=== PATIENT | female | born 1945 | race Caucasian/White ===

== ENCOUNTER 2016-11-27 14:45 | Outpatient (CLI) | payer MEDICARE, BC, OTHER | END 2016-11-27 14:46 | disposition home or self-care (01) | LOC: SC 14:45 | PROVIDERS: ATTEND Nurse Practitioner Family | DX: G47.33 Obstructive sleep apnea (adult) (pediatric) (principal) | CPT/HCPCS: 99214; G0463; 99212 ==

== ENCOUNTER 2017-12-12 13:12 | Outpatient (CLI) | payer MEDICARE, BC, OTHER | END 2017-12-12 13:13 | disposition home or self-care (01) | LOC: SC 13:12 | PROVIDERS: ATTEND Nurse Practitioner Family | DX: G47.33 Obstructive sleep apnea (adult) (pediatric) (principal) | CPT/HCPCS: 99214; G0463; 99212 ==

== ENCOUNTER 2018-02-11 20:26 | Outpatient (CLI) | payer MEDICARE, BC, OTHER | END 2018-02-11 20:27 | disposition home or self-care (01) | LOC: SC 20:26 | PROVIDERS: ATTEND Internal Medicine Pulmonary Disease | DX: G47.33 Obstructive sleep apnea (adult) (pediatric) (principal) | CPT/HCPCS: 95810 ==

== ENCOUNTER 2018-02-19 09:46 | Outpatient (CLI) | payer MEDICARE, BC, OTHER | END 2018-02-19 09:47 | disposition home or self-care (01) | LOC: SC 09:46 | PROVIDERS: ATTEND Nurse Practitioner Family | DX: G47.33 Obstructive sleep apnea (adult) (pediatric) (principal) | CPT/HCPCS: 99214; G0463; 99212 ==

== ENCOUNTER 2018-05-13 15:20 | Outpatient (CLI) | payer MEDICARE, BC, OTHER | END 2018-05-13 15:21 | disposition home or self-care (01) | LOC: SC 15:20 | PROVIDERS: ATTEND Nurse Practitioner Family | DX: G47.33 Obstructive sleep apnea (adult) (pediatric) (principal) | CPT/HCPCS: 99213; G0463; 99212 ==

== ENCOUNTER 2019-05-15 10:49 | Outpatient (CLI) | payer MEDICARE, BC, OTHER ==
[2019-05-15 11:48] VITALS: BP 134/68
--- NOTE | 2019-05-15 11:48 | SLEEP CARE CONSULTATION ---
Information from patient questionnaire entered by Jaimie Barboza. I have reviewed and concur with the information entered by Jaimie Barboza. This document represents the service I personally performed and the decisions made by me, Amy Will, RN, MSN, [employer] HELPER. History of Present Illness Previous diagnosis: Severe, Obstructive Sleep Apnea-Hypopnea Syndrome AHI: 58.0 Reason for follow up: annual (last seen 2018) Accompanied by: Spouse Equipment type: CPAP Equipment obtained from: [place] Mask style: Nasal pillows Backup mask available: Yes Last cushion change: 3 weeks ago CPAP Compliance Data - Data Reviewed with Patient Average duration of nightly device use: 7.3 Compliance rate %: 98.9 (180 days) Current pressure setting (cmH2O): 8-9 Humidity settin Heated hose settin Average residual AHI: 2.6 Average large leak: 3 min 40 sec Subjective Patient concerns: reports: dry mouth, nose, throat (a couple times a week for dry nose ). denies: aerophagia, mask discomfort, air blowing in eyes, mask leak noise, condensation in mask/hose, nasal congestion, epistaxis Observed to snore while using device: Yes (occasional ) Current pressure setting perceived as: comfortable On therapy, patient: reports: sleeping better (when not having back pain), more rested overall (when sleep not disrupted by back pain - seen by PCP this morning. ) Initial [place] Sleepiness Scale score: 8 Current [place] Sleepiness Scale score: 7 Allergies and Home Medications Known drug allergies: No Home medication list reviewed: Yes (see added meds) Allergy and home medication list: Medication Name (generic/name brand) Strength & Dosage Micardis/HCTZ 80/25mg tab one daily Fluoxetine 20mg tab one daily eliquis 5mg twice a day Toprol XL 25mg daily Metformin daily Review of Systems Review of systems same as previous: No (echocardiogram -arrhythmia corrected with cardioversion ) Physical Exam Blood Pressure: 134/68 Cuff size: wrist Heart Rate: 77 O2 Saturation: 95 Height: 5 ft 6 in Weight: 249 lb 12.8 oz Weight change since last visit: lost 10 pounds Body Mass Index: 40.3 BMI Classification: Obesity Class 3 Impression and Plan 1. Obstructive Sleep Apnea-Hypopnea Syndrome, severe, with good treatment compliance and good apnea control. On CPAP therapy, the patient has better sleep quality and is more rested overall if sleep not disrupted by back pain. She recently was evaluated by PCP today and treatment plan started. Nasal dryness can be reduced with increasing the CPAP humidity as shown on sample device and the heated hose can be increased if condensation. Ptinted instructions on how to change pressure with rationale why to change settings given. In addition, I gave the patient a few samples of Nany Ease nasal cream to be used 4 times a day for 7-10 days and then as needed. Printed information given about the product and how to obtain more. Since she has a history of nasal dryness even before CPAP use, she may benefit from use of this product daily. I advised her not to use the vaseline, Vicks product she has been using before especially if before CPAP use as the petroleum base can increase mask cushion breakdown. Patient has lost lost weight. Currently patients BMI is 40.3 obesity class Obesity Class 3. Obesity increases the risk of apnea, CPAP pressure requirements and overall health risks especially cardiovascular and diabetes. Thus patient is advised to continue tp lose weight and informed of benefit to her diabetes. Patient states she has struggled with weight loss. She was advised how a good demand planning analyst can assist with weight loss. But patient did not seem interested. I also discussed how weight loss and gain can affect CPAP pressure. Symptoms to report for additional pressure adjustment discussed. Patient's apnea severity and rationale for treatment to reduce apnea, improve sleep quality and reduce cardiovascular and cerebrovascular events was reviewed. I also reviewed the benefit of consistent device use of CPAP for hypertension, arrhythmia, diabetes. * Continue CPAP pressure at 8-9 cmH2O * Implement measures to reduce nasal dryness * Notify me if snoring with mask or feeling that the pressure is too much or too little * Attempt to lose weight * Call this office if any problems using CPAP * Return for follow up in 1 year, or sooner if concerns arise Time Spent with Patient (minutes): 25 I spent 100% of this visit face to face with the patient with greater than 50% of this was spent time counseling the patient and coordination of care.
== END 2019-05-15 10:50 | disposition home or self-care (01) ==
LOC: SC 10:49
PROVIDERS: ATTEND Nurse Practitioner Family
DX: G47.33 Obstructive sleep apnea (adult) (pediatric) (principal); E66.9 Obesity, unspecified; Z68.41 Body mass index [BMI] 40.0-44.9, adult
CPT/HCPCS: 99214; G0463; 99212

== ENCOUNTER 2020-01-20 11:08 | Outpatient (CLI) | payer MEDICARE, BC, OTHER ==
--- NOTE | 2020-01-26 14:47 | Mammography Report ---
BILATERAL DIGITAL SCREENING MAMMOGRAM 3D/2D: 01/20/2020 CLINICAL: Routine screening. Comparison is made to exams dated: 08/16/2011 mammogram, 08/16/2010 mammogram, 08/23/2009 mammogram, and 08/05/2009 mammogram - [facility]. The tissue of both breasts is predominantly fat ty. There is an asymmetry in the left breast middle depth lateral region seen on the craniocaudal view on ly. No other significant masses, calcifications, or other findings are seen in either breast. IMPRESSION: INCOMPLETE: NEEDS ADDITIONAL IMAGING EVALUATION The asymmetry in the left breast is indeterminate. Additional views with possible ultrasound are rec ommended. This exam was interpreted at Station ID: [id number]. NOTE: For mammograms, a report in lay terms will be sent to the patient. Approximately 15% of breast malignancies will not be visualized mammographically. In the management of a palpable breast mass, a negative mammogram must not discourage biopsy of a clinically suspicious lesion. Electronically Signed By: Ena Shay M.D. lk/:01/26/2020 10:26:44 ACR BI-RADS Category 0: Incomplete 3340F PARENCHYMAL PATTERN: (F) - The breast(s) demonstrate(s) diffuse fatty replacement. BI-RADS CATEGORY: (0) - 0 Mammo and [place] [id number] Immediate follow-up LATERALITY: (B)
== END 2020-01-20 11:09 | disposition home or self-care (01) ==
LOC: DI.N 11:08
DX: Z12.31 Encounter for screening mammogram for malignant neoplasm of breast (principal); R92.8 Other abnormal and inconclusive findings on diagnostic imaging of breast
CPT/HCPCS: 77063; 77067

== ENCOUNTER 2020-02-19 09:54 | Outpatient (CLI) | payer MEDICARE, BC, OTHER ==
--- NOTE | 2020-02-20 16:15 | Mammography Report ---
UNILATERAL LEFT DIGITAL DIAGNOSTIC MAMMOGRAM 3D/2D: 02/19/2020 CLINICAL: Patient returns today to evaluate a focal asymmetry in the left breast. Comparison is made to exams dated: 01/20/2020 mammogram - [facility], 12/27/2018 mamm ogram, 12/13/2017 mammogram, and 11/13/2016 mammogram - [facility]. The tissue of left breast is predominantly fatty. There is a stable benign focal asymmetry in the left breast at 4 o'clock middle depth. The focal as ymmetry has not significantly changed when compared to more recent outside mammograms dating back to 11/13/2016, and is therefore considered benign. No other significant masses or calcifications are seen in the breast. IMPRESSION: BENIGN There is no mammographic evidence of malignancy. A 1 year screening mammogram is recommended. This exam was interpreted at Station ID: [id number]. NOTE: For mammograms, a report in lay terms will be sent to the patient. Approximately 15% of breast malignancies will not be visualized mammographically. In the management of a palpable breast mass, a negative mammogram must not discourage biopsy of a clinically suspicious lesion. Electronically Signed By: Artemio blue/janet:02/19/2020 12:37:19 ACR BI-RADS Category 2: Benign Finding(s) 3342F PARENCHYMAL PATTERN: (F) - The breast(s) demonstrate(s) diffuse fatty replacement. BI-RADS CATEGORY: (2) - 2 RECOMMENDATION: (ANNUAL) - Recommend routine annual screening mammography. [id number] 1 year screening LATERALITY: (B)
== END 2020-02-19 09:55 | disposition home or self-care (01) ==
LOC: DI 09:54
PROVIDERS: ATTEND Internal Medicine
DX: R92.8 Other abnormal and inconclusive findings on diagnostic imaging of breast (principal)

== ENCOUNTER 2020-05-13 12:33 | Outpatient (CLI) | payer MEDICARE, BC, OTHER ==
--- NOTE | 2020-05-13 11:05 | SLEEP CARE CONSULTATION ---
Information from patient questionnaire entered by Jaimie Barboza. I have reviewed and concur with the information entered by Jaimie Barboza. This document represents the service I personally performed and the decisions made by me, Amy Will, RN, MSN, IT DIRECTOR. History of Present Illness Service Date and Time: 05/13/2020 1030 Previous diagnosis: Severe, Obstructive Sleep Apnea-Hypopnea Syndrome AHI: 58.0 (in 2018)(58.6 in 2008) Reason for follow up: annual (last seen 04/2019) Equipment type: CPAP Equipment obtained from: [employer] (getting supplies as needed) Mask style: Nasal pillows Backup mask available: Yes (old mask ) Last cushion change: a few days ago Prior sleep studies: Yes Year and Where: 2007 and 2017 - [facility] Type of Sleep Study: Polysomnography CPAP Compliance Data - Data Reviewed with Patient Average duration of nightly device use: 7 hr 40 min Compliance rate %: 98.9 (180 days) Current pressure setting (cmH2O): 8-9 Humidity settin Heated hose settin Average residual AHI: 2.2 Average large leak: 4 min 20 sec Subjective Patient concerns: reports: mask discomfort (occasionally some discomfort - wonders if she is changing every two weeks as planned ), dry mouth, nose, throat (dry nose with burning sensation intermittently the last couple of months ), other (slight headache when wakes with dry stinging nose. ). denies: aerophagia, air blowing in eyes, mask leak noise, condensation in mask/hose (some moisture when first puts one and will off), nasal congestion, epistaxis Observed to snore while using device: No Current pressure setting perceived as: comfortable On therapy, patient: reports: sleeping better, awakening more refreshed, being more awake and alert during the day (more fatigued since pandemic), more rested overall. denies: drowsiness while driving Initial [place] Sleepiness Scale score: 8 (in 2007) Current [place] Sleepiness Scale score: 7 Allergies and Home Medications Known drug allergies: No Home medication list reviewed: Yes (added flecainide succinate) Review of Systems Review of systems same as previous: No (atrial fibrillation - cardioversion unsuccessful so medications changed ) Physical Exam Height: 5 ft 6 in (same per patient) Impression and Plan 1. Obstructive Sleep Apnea-Hypopnea Syndrome, severe, with good treatment compliance and good apnea control. On CPAP therapy, the patient has better sleep quality and is more rested overall. To decrease mask discomfort, patient to change mask cushions more often. To help remember when this is completed, she can track on a small calendar at bedside. To reduce moisture in mask after cleaning, she can turn on CPAP on to dry out. Cleaning questions answered. I referred her to the CPAP manual and [place] for further clarification. She had questions about instructional technology coordinator and FDA warning given not to use. Nasal dryness can be reduced with increasing the CPAP humidity. Verbal instruction given. The heated hose can be increased if condensation. If unable to change humidity higher as advised, she can contact [place]. A higher humidity should also reduce slight headache if from dryness. If headache persistent, she is to contact her PCP with rationale discussed. Nasal dryness can also be reduced with a nasal moisturizer such as Nany Ease or [place]. Questions can be addressed with pharmacist. Use of Vicks was discouraged with rationale discussed. Patient's apnea severity and rationale for treatment to reduce apnea, improve sleep quality and reduce cardiovascular and cerebrovascular events was reviewed. I also reviewed the benefit of consistent device use of CPAP for hypertension. Since patient has more severe apnea in supine position, patient advised to avoid supine sleep with pillow positioning if unable to use CPAP while ill or if without electricity to reduce apnea risk. When asked about her weight she stated it is the same and did not want to discuss. I just stated that weight can affect apnea risk and CPAP pressure and health and to follow up with PCP. 2. Fatigue, since pandemic. Wonders if due to inactivity since pandemic restrictions. I advised her how inactivity can increase fatigue and to move more during the day. She is to follow up with PCP if persists. * Continue auto CPAP pressure at 8-9 cmH2O * implement methods to reduce dryness. * Notify me if snoring with mask or feeling that the pressure is too much or too little * Attempt to lose weight * Follow up with PCP as discussed * Call this office if any problems using CPAP * Return for follow up in 1 year , or sooner if concerns arise Counseling Topics: Sleeping position Visit Type: Telehealth Phone ([employer]) Patient Location: Home Other Participants: Spouse/Significant Other Location of Provider: Home Patient agrees and consents to this telehealth visit type: Yes Patient agrees to have their insurance billed: Yes Time Spent with Patient (minutes): 30 plus 8 minutes documentation after visit. Provider Statement: I spent 100% of the Telehealth Phone Call with the patient with greater than 50% spent counseling the patient and coordination of care.
== END 2020-05-13 12:34 | disposition home or self-care (01) ==
LOC: SC 12:33
PROVIDERS: ATTEND Nurse Practitioner Family
DX: G47.33 Obstructive sleep apnea (adult) (pediatric) (principal); R53.83 Other fatigue

== ENCOUNTER 2020-09-29 12:58 | Outpatient (CLI) | payer MEDICARE, BC, OTHER | END 2020-09-29 12:59 | disposition home or self-care (01) | LOC: RT 12:58 | PROVIDERS: ATTEND Internal Medicine Cardiovascular Disease | DX: I35.0 Nonrheumatic aortic (valve) stenosis (principal); I48.0 Paroxysmal atrial fibrillation | CPT/HCPCS: 94010 ==

== ENCOUNTER 2021-05-03 11:14 | Outpatient (CLI) | payer MEDICARE, BC, OTHER ==
[2021-05-03 11:54] VITALS: BP 135/62
--- NOTE | 2021-05-03 11:54 | SLEEP CARE CONSULTATION ---
Information from patient questionnaire entered by Wen Sommer MA. I have reviewed and concur with the information entered by Wen Sommer MA. This document represents the service I personally performed and the decisions made by , Peidad Oconnor ARNP. History of Present Illness Service Date and Time: 05/03/2021 1114 Previous diagnosis: Severe, Obstructive Sleep Apnea-Hypopnea Syndrome AHI: 58.0 (in 2018)(58.6 in 2008) Reason for follow up: annual Equipment type: CPAP Equipment obtained from: [employer] (getting supplies as needed) Mask style: Nasal pillows Backup mask available: Yes (old mask) Last cushion change: last night Prior sleep studies: Yes Year and Where: 2007 and 2017 - [facility] Type of Sleep Study: Polysomnography HPI additional information: PAXTON GEE was diagnosed to have severe, AHI 58.0, obstructive sleep apnea- hypopnea syndrome and returned today with spouse for CPAP therapy annual follow- up. Sleep Study - Results Type of Sleep Study: Polysomnography Prior sleep studies: Yes Year and Where: 2007 and 2017 - [facility] CPAP Compliance Data - Data Reviewed with Patient Average duration of nightly device use: 7 HOURS 15 MINUTES Compliance rate %: 99.4 Current pressure setting (cmH2O): 8-9 Humidity settin Heated hose settin Average residual AHI: 2.8 Average large leak: 3 MINUTES 17 SECONDS Subjective Patient concerns: reports: dry mouth, nose, throat (dry mouth and nose), other (headache - not sure if CPAP is at fault; resolves with tylenol) Observed to snore while using device: No Current pressure setting perceived as: comfortable On therapy, patient: reports: sleeping better, awakening more refreshed, being more awake and alert during the day, more rested overall. denies: drowsiness while driving Initial [place] Sleepiness Scale score: 8 (in 2007) Current [place] Sleepiness Scale score: 10 Allergies and Home Medications Known drug allergies: No Drug allergies reviewed: Yes Home medication list reviewed: Yes Allergy and home medication list: Dofetilide for AFib--started in November Furosemide Telmasartin Toprol XL Eliquis Review of Systems Review of systems same as previous: Yes (no changes; appt with ortho for knee) Cardiovascular: reports: irregular heart rate or pulse, other (AFIB - PT NOW HAS IT CONTROLLED.) Physical Exam Vital signs obtained and entered by: GENA AVALOS Blood Pressure: 135/62 (RIGHT) Cuff size: wrist Heart Rate: 86 O2 Saturation: 96 (WITH PAPER MASK) Height: 5 ft 6 in Weight: 230 lb (WITH CLOTHES) Body Mass Index: 37.1 BMI Classification: Obese Impression and Plan 1. Obstructive Sleep Apnea-Hypopnea Syndrome, severe, with excellent treatment compliance and good apnea control. On CPAP therapy, the patient has better sleep quality and is more rested overall. Patient has been having some nasal dryness with occasional burning. Her machine is set at 5 for heated hose and humidifier. I advised to reduce heated hose to 4. Nasal dryness can be reduced with increasing the CPAP humidity as shown on sample device and the heated hose can be increased if condensation. In addition, I gave the patient a few samples of Nany Ease nasal cream to be used 4 times a day for 7-10 days and then as needed. Patient has already registered their device for the recall. Patient denies any black particles seen in machine or hoses, any unusual odors coming from device. Patient has not experienced any physical symptoms such as upper airway irritation, headache, skin or eye irritation, asthma, nausea/vomiting, difficulty breathing or chest pain. If patient is not able to sleep due to waking up choking, gasping for air or other respiratory distress that they may decide to continue using it until it is either replaced or repaired. Patient is continuing to use her device at this time and will monitor it for any changes. Patient voiced understanding and agreement with plan. Patient's apnea severity and rationale for treatment to reduce apnea, improve sleep quality and reduce cardiovascular and cerebrovascular events was reviewed. I also reviewed the benefit of consistent device use of CPAP for hypertension. Patient was encouraged to lose weight for their overall health and to reduce apneas. Patient states she has not been losing weight over the holidays and is just waiting for the extra fluid to be out of the house. * Continue auto CPAP pressure at 8-9 cmH2O * Notify me if snoring with mask or feeling that the pressure is too much or too little * Attempt to lose weight * Call this office if any problems using CPAP * Return for follow up in 1 year, or sooner if concerns arise Counseling Topics: Spare mask, Weight loss health impact Visit Type: In Office Other Participants: Spouse/Significant Other Time Spent with Patient (minutes): 23 Provider Statement: I spent 100% of the Face to Face Visit with the patient with greater than 50% spent counseling the patient and coordination of care.
== END 2021-05-03 11:15 | disposition home or self-care (01) ==
LOC: SC 11:14
PROVIDERS: ATTEND Nurse Practitioner Family
DX: G47.33 Obstructive sleep apnea (adult) (pediatric) (principal); E66.9 Obesity, unspecified; Z68.37 Body mass index [BMI] 37.0-37.9, adult
CPT/HCPCS: 99213; G0463; 99212

== ENCOUNTER 2021-07-25 01:34 | Outpatient (CLI) | payer MEDICARE, BC, OTHER | END 2021-07-25 01:35 | disposition critical access hospital (66) | LOC: EMS 01:34 | DX: I48.91 Unspecified atrial fibrillation (principal); R07.9 Chest pain, unspecified; R06.00 Dyspnea, unspecified | CPT/HCPCS: A0425; A0427 ==

== ENCOUNTER 2021-07-25 01:52 | Emergency (ER) | payer MEDICARE, BC, OTHER ==
--- NOTE | 2021-07-25 01:53 | ED Physician Documentation ---
PD HPI CHEST PAIN - Stated complaint Stated Complaint: CP, ANXIETY - History obtained from History obtained from: Patient, EMS - History of Present Illness Timing - onset: Enter time (00:30), Today Timing - onset during: Rest Timing - details: Gradual onset Pain level now: 4 Location: Substernal Radiation: Left upper extremity, Right upper extremity Improved by: Nitro (SLNTG x 2 without change in symptoms), Nothing Worsened by: Other Associated symptoms: Palpitations. No: Shortness of air, Diaphoresis, Nausea, Vomiting Similar symptoms before: No diagnosis Recently seen: Not recently seen - Additional information Additional information: BIBA for chest discomfort . Found to be in ANDREW by EMS , as fast as 140s-150s. Symptoms started around 00:30 tonight while at home at rest. She is two weeks post-left TKR. Amongst her prescribed medications are deftlilide and eliquis. She says the chest pain is sharp, midline, radiates to BUE and associated with mild dyspnea. Review of Systems Constitutional: reports: Reviewed and negative Nose: reports: Reviewed and negative Cardiac: reports: Chest pain / pressure, Palpitations. denies: Calf pain Respiratory: reports: Dyspnea (mild). denies: Cough GI: reports: Reviewed and negative : denies: Dysuria, Frequency Musculoskeletal: denies: Extremity swelling Neurologic: denies: Generalized weakness PD PAST MEDICAL HISTORY - Past Medical History Past Medical History: Yes Cardiovascular: Hypertension, Atrial fibrillation - Present Medications Home Medications: Ambulatory Orders Medication Instructions Recorded Confirmed Apixaban [Eliquis] 5 mg PO BID 07/25/21 07/25/21 Cholecalciferol [Vitamin D3] 5,000 unit PO DAILY 07/25/21 07/25/21 Dofetilide [Tikosyn] 500 mcg PO BID 07/25/21 07/25/21 Furosemide [Lasix] 20 mg PO DAILY 07/25/21 07/25/21 Magnesium Oxide 400 mg PO DAILY 07/25/21 07/25/21 Metoprolol Succinate [Toprol Xl] 25 mg PO BID 07/25/21 07/25/21 Multivitamin 1 tab PO DAILY 07/25/21 07/25/21 [place]-3S/Dha/Epa/Fish Oil [Fish 1 cap PO DAILY 07/25/21 07/25/21 Oil 1,200 mg Softgel] Potassium Chloride [Klor-Con] 20 meq PO DAILY 07/25/21 07/25/21 Telmisartan 20 mg PO DAILY 07/25/21 07/25/21 Ubidecarenone [Co Q-10] 300 mg PO DAILY 07/25/21 07/25/21 metFORMIN [Glucophage] 750 mg PO DAILY 07/25/21 07/25/21 - Allergies Allergies/Adverse Reactions: Allergies Allergy/AdvReac Type Severity Reaction Status Date / Time No Known Drug Allergies Allergy Verified 07/25/21 02:01 PD ED PE NORMAL - Vitals Vital signs reviewed: Yes - General General: Alert and oriented X 3, No acute distress, Well developed/nourished - HEENT HEENT: Moist mucous membranes, Pharynx benign - Neck Neck: Supple, no meningeal sign, Thyroid normal - Cardiac Cardiac: RRR, No gallop, No rub - Respiratory Respiratory: No respiratory distress, Clear bilaterally - Abdomen Abdomen: Normal bowel sounds, Soft, Non tender, Non distended - Back Back: No CVA TTP - Derm Derm: Normal color, Warm and dry - Extremities Extremities: No edema PD ED PE EXPANDED - Cardiac Cardiac: Tachy, Irregularly irregular, Murmur Present Results - Vitals Vitals: Oxygen O2 Source Room air - EKG (time done) No standard instances Rate: Rate (enter#) (124) Rhythm: Atrial fibrillation, Other (3 beats NSVT) Intervals: Prolonged QT QRS: Poor R wave progression - Labs Labs: Laboratory Tests 07/25/21 07/25/21 07/25/21 02:05 02:05 02:05 WBC 12.4 H RBC 3.97 L Hgb 11.7 L Hct 35.5 L MCV 89.4 MCH 29.5 MCHC 33.0 RDW 12.6 Plt Count 375 MPV 9.9 Neut # (Auto) 8.2 H Lymph # (Auto) 2.9 [place] # (Auto) 1.1 H Eos # (Auto) 0.1 Baso # (Auto) 0.0 Absolute Nucleated RBC 0.00 Nucleated RBC % 0.0 Sodium 137 Potassium 3.9 Chloride 102 Carbon Dioxide 22 Anion Gap 13.0 BUN 19 Creatinine 0.9 Estimated GFR (MDRD) 61 L Glucose 135 H Calcium 9.4 Total Bilirubin 0.7 AST 18 ALT 18 Alkaline Phosphatase 65 Troponin I High Sens 11.5 Total Protein 7.3 Albumin 3.5 Globulin 3.8 Albumin/Globulin Ratio 0.9 L Lipase 27 - Rads (name of study) chest xray Radiology: Prelim report reviewed, See rad report PD MEDICAL DECISION MAKING - ED course Complexity details: reviewed old records, reviewed results, re-evaluated patient, considered differential, d/w patient ED course: no remarkable findings on ER abdominal panel, CBC with trivial elevation of WBC, and hscTn is normal. CXR also has no concerning findings. Results d/w patient, lack of diagnosis at this time but stressed emphasis of following up with primary care provider or [employer] commerce consultant, as further testing might be indicated . Return precautions discussed. Departure - Departure Disposition: 01 Home, Self Care Clinical Impression: Rapid atrial fibrillation Chest pain Qualifiers: Chest pain type: unspecified Qualified Code(s): R07.9 - Chest pain, unspecified Condition: Good Instructions: ED Afib, ED Chest Pain Atypical Unkn Cause Comments: You were in rapid atrial fibrillation tonight; while the atrial fibrillation is not a new diagnosis for you, the heart rate was significantly above a normal resting heart rate. You were given one dose of IV metoprolol and subsequently your rhythm converted to a normal (sinus) rhythm and your heart rate became normal. Your test results are reassuring, with no significant abnormalities on blood tests , chest xray. Follow up with your [employer] commerce consultant for reevaluation. Discharge Date/Time: 07/25/21 03:35
[2021-07-25] MEDS ORDERED: METOPROLOL 5 MG/5 ML VIAL IVP STA ×2 (02:10→02:48)
--- OUTSIDE RECORDS SUMMARY | 2021-07-25 02:12 | EXTERNAL MEDICAL SUMMARY RPT | Continuity of Care Document ---
:1945 Author Organization [facility] Address [address] [place] [address] Phone Care Team Providers Name Role Phone Clerc Unavailable Unavailable Torres Unavailable Unavailable Parks Unavailable Unavailable Allergies No information. Encounters No information. Medications date description facility [id number] POLYETHYLENE GLYCOL 3350 142 MG/ML Oral Solution [facility] [id number] Ibuprofen [address] [facility] 20210713 Oxycodone Hydrochloride 10 MG Oral Tabl [facility] 20210713 Oxycodone Hydrochloride 5 MG Oral Table [facility] 20210704 24 HR metoprolol succinate 25 MG Extend ed [facility] Tablet 20210704 24 HR Metformin hydrochloride 750 MG Ex [facility] Tablet 20210704 Furosemide 20 MG Oral Tablet [facility] 20210704 dofetilide 0.5 MG Oral Capsule [facility] 20210704 telmisartan 20 MG Oral Tablet [facility] 20210704 Magnesium Oxide 400 MG Oral [facility]t [facility] 20210704 Potassium Chloride 20 MEQ Extended Rele ase Tablet [facility] 20210704 apixaban 5 MG Oral Tablet [facility] 20210704 24 HR metoprolol succinate 25 MG Extend ed [facility] Tablet 35295020 24 HR Metformin hydrochloride 750 MG Ex [facility] Tablet 45325120 Furosemide 20 [facility] 20[facility] dofetilide 0.5 MG Oral Capsule [facility] 20210704 telmisartan 20 MG Oral Tablet [facility] 20210704 Magnesium Oxide 400 MG Oral Tablet [facility] 20210704 Potassium Chloride 20 MEQ Extended Rele ase [facility] 20210704 apixaban 5 MG Oral Tablet [facility] Problems date description facility [id number] Unilateral primary osteoarthritis, left knee [facility] [id number] Contact with and (suspected) exposure t o [address] Procedures date description facility [id number] [facility] [id number] [facility] [id number] [facility] Results No information. Vital Signs date measurement value source 20210712 weight_standard 229.99 lb 20210712 weight_metric 104.32 kg 20210712 height_standard 66 in 20210712 height_metric 167.64 cm 20210712 BMI 37.1 kg/m2 20210713 temperature_standard 98 F 20210713 temperature_metric 36.67 C 20210713 respiration_rate 17 /min 20210713 heart_rate 53 /min 20210713 BP_systolic 141 mm[Hg] 20210713 BP_diastolic 57 mm[Hg]
[2021-07-25 02:16] LABS: BASOPHILS % (AUTO) 0.2 %; EOSINOPHILS # (AUTO) 0.1 10^3/uL (0.0-0.7); EOSINOPHILS % (AUTO) 1.1 %; HCT - HEMATOCRIT 35.5 % (37.0-47.0); HGB - HEMOGLOBIN 11.7 g/dL (12.0-16.0); LYMPHOCYTES # (AUTO) 2.9 10^3/uL (1.5-3.5); LYMPHOCYTES % (AUTO) 23.1 %; MEAN CORPUSCULAR HEMOGLOBIN 29.5 pg (27.0-31.0); MEAN CORPUSCULAR VOLUME 89.4 fL (81.0-99.0); MEAN PLATELET VOLUME 9.9 fL (7.9-10.8); MONOCYTES # (AUTO) 1.1 10^3/uL (0.0-1.0); MONOCYTES % (AUTO) 8.6 %; NEUTROPHILS # (AUTO) 8.2 10^3/uL (1.5-6.6); NEUTROPHILS % (AUTO) 66.4 %; PLT - PLATELET COUNT 375 10^3/uL (130-450); RED BLOOD COUNT 3.97 10^6/uL (4.20-5.40); RED CELL DISTRIBUTION WIDTH 12.6 % (12.0-15.0); WHITE BLOOD COUNT 12.4 x10^3/uL (4.8-10.8)
[2021-07-25 02:29] LABS: ALBUMIN 3.5 g/dL (3.2-5.5); ALBUMIN/GLOBULIN RATIO 0.9 (1.0-2.2); BILIRUBIN,TOTAL 0.7 mg/dL (0.2-1.0); CALCIUM 9.4 mg/dL (8.5-10.3); CREATININE 0.9 mg/dL (0.4-1.0); POTASSIUM 3.9 mmol/L (3.5-5.0); TOTAL PROTEIN 7.3 g/dL (6.7-8.2)
[2021-07-25 03:11] VITALS: BP 122/56
--- NOTE | 2021-07-25 07:41 | XRAY Report ---
PROCEDURE: Chest 1 View X-Ray INDICATIONS: Chest pain TECHNIQUE: One view of the chest was acquired. COMPARISON: None FINDINGS: Surgical changes and devices: None. Lungs and pleura: No pleural effusions or pneumothorax. Lungs are clear. Mediastinum: Mediastinal contours appear normal. Heart size is mildly enlarged. Bones and chest wall: No suspicious bony lesions. Overlying soft tissues appear unremarkable. IMPRESSION: No acute pulmonary process. The above findings are concordant with preliminary report. Reviewed by: Dian Brito MD on 07/25/2021 7:40 AM PDT Approved by: Dian Brito MD on 07/25/2021 7:40 AM PDT Station ID: [id number]
== END 2021-07-25 03:35 | disposition home or self-care (01) ==
LOC: EDUNIT# → ED 01:52
DX: I48.91 Unspecified atrial fibrillation (principal); Z79.01 Long term (current) use of anticoagulants
CPT/HCPCS: 36415; 80053; 83690; 84484; 85025; 93005; 96374; 99284

== ENCOUNTER 2021-11-14 02:37 | Outpatient (CLI) | payer MEDICARE, BC, OTHER | END 2021-11-14 02:38 | disposition critical access hospital (66) | LOC: EMS 02:37 | DX: R07.9 Chest pain, unspecified (principal); I48.91 Unspecified atrial fibrillation | CPT/HCPCS: A0425; A0427 ==

== ENCOUNTER 2021-11-14 02:54 | Emergency (ER) | payer MEDICARE, BC, OTHER ==
--- NOTE | 2021-11-14 03:15 | ED Physician Documentation ---
PD HPI CHEST PAIN - Stated complaint Stated Complaint: CP, DIZZY - Chief complaint Chief Complaint: Cardiac - History obtained from History obtained from: Patient - History of Present Illness Timing - onset: Enter time (01:00), Today Timing - onset during: Rest Timing - details: Abrupt onset Pain level max: 2 Pain level now: 0 Quality: Pain Location: Substernal Radiation: Other (no radiation) Improved by: Nothing Worsened by: Other (no exaerbating factors) Associated symptoms: Feeling faint / dizzy, Palpitations. No: Shortness of air, Diaphoresis, Nausea, Vomiting, General Weakness Similar symptoms before: Diagnosis (atrial fibrillation) - Additional information Additional information: BIBA, c/o chest pain and dizziness, onset at approximately 1 AM. Patient notes rapid and irregular palpitations c/w previous ANDREW. Patient says she is in and out of a. fib (per patient) but that tonight it was faster than typical episodes and associated with the lightheadedness/dizziness and chest discomfort. Review of Systems Constitutional: reports: Reviewed and negative Cardiac: reports: Chest pain / pressure, Palpitations. denies: Pedal edema Respiratory: reports: Reviewed and negative GI: reports: Reviewed and negative Musculoskeletal: denies: Extremity swelling PD PAST MEDICAL HISTORY - Past Medical History Past Medical History: Yes Cardiovascular: Hypertension, Atrial fibrillation Respiratory: Sleep apnea, CPAP use Endocrine/Autoimmune: Type 2 diabetes : None Psych: Depression, Panic attacks Musculoskeletal: Osteoarthritis - Past Surgical History Past Surgical History: Yes General: Cholecystectomy, Colonoscopy Ortho: Carpal Tunnel surgery - Present Medications Home Medications: Ambulatory Orders Medication Instructions Recorded Confirmed Apixaban [Eliquis] 5 mg PO BID 07/25/21 07/25/21 Cholecalciferol [Vitamin D3] 5,000 unit PO DAILY 07/25/21 07/25/21 Dofetilide [Tikosyn] 500 mcg PO BID 07/25/21 07/25/21 Furosemide [Lasix] 20 mg PO DAILY 07/25/21 07/25/21 Magnesium Oxide 400 mg PO DAILY 07/25/21 07/25/21 Metoprolol Succinate [Toprol Xl] 25 mg PO BID 07/25/21 07/25/21 Multivitamin 1 tab PO DAILY 07/25/21 07/25/21 [place]-3S/Dha/Epa/Fish Oil [Fish 1 cap PO DAILY 07/25/21 07/25/21 Oil 1,200 mg Softgel] Potassium Chloride [Klor-Con] 20 meq PO DAILY 07/25/21 07/25/21 Telmisartan 20 mg PO DAILY 07/25/21 07/25/21 Ubidecarenone [Co Q-10] 300 mg PO DAILY 07/25/21 07/25/21 metFORMIN [Glucophage] 750 mg PO DAILY 07/25/21 07/25/21 Aspirin [Vazalore] 81 mg PO 11/14/21 - Allergies Allergies/Adverse Reactions: Allergies Allergy/AdvReac Type Severity Reaction Status Date / Time No Known Drug Allergies Allergy Verified 11/14/21 03:04 - Social History Does the pt smoke?: No Smoking Status: Never smoker Does the pt drink ETOH?: No Does the pt have substance abuse?: No - Immunizations Immunizations are current?: Yes - POLST Patient has POLST: No PD ED PE NORMAL - Vitals Vital signs reviewed: Yes - General General: Alert and oriented X 3, No acute distress, Well developed/nourished - Cardiac Cardiac: No murmur - Respiratory Respiratory: No respiratory distress, Clear bilaterally - Abdomen Abdomen: Soft, Non tender - Derm Derm: Normal color, Warm and dry - Extremities Extremities: No edema PD ED PE EXPANDED - Cardiac Cardiac: Tachy, Irregularly irregular Results - Vitals Vitals: Oxygen O2 Source Room air - EKG (time done) No standard instances Rate: Rate (enter#) (105), Tachy Rhythm: Atrial fibrillation [place]: Normal QRS: Normal Ischemia: ST depression (minimal/borderline ST depressions V5, V6) Compare to prior EKG: Unchanged from prior EKG (no significant change compared to 07/25/21 (first EKG that night when she was in atrial fibrillation; repeat EKG that same visit was after conversion to NSR)) - Labs Labs: Laboratory Tests 11/14/21 11/14/21 11/14/21 03:19 03:19 03:19 WBC 9.7 RBC 4.42 Hgb 13.0 Hct 39.3 MCV 88.9 MCH 29.4 MCHC 33.1 RDW 13.1 Plt Count 154 MPV 10.0 Neut # (Auto) 6.5 Lymph # (Auto) 2.0 [place] # (Auto) 1.0 Eos # (Auto) 0.1 Baso # (Auto) 0.0 Absolute Nucleated RBC 0.00 Nucleated RBC % 0.0 Sodium 141 Potassium 3.9 Chloride 103 Carbon Dioxide 27 Anion Gap 11.0 BUN 23 H Creatinine 0.7 Estimated GFR (MDRD) 81 L Glucose 109 H Calcium 9.8 Total Bilirubin 0.6 AST 16 ALT 13 Alkaline Phosphatase 60 Troponin I High Sens 27.0 H* Total Protein 7.5 Albumin 4.1 Globulin 3.4 Albumin/Globulin Ratio 1.2 Lipase 30 11/14/21 05:19 WBC RBC Hgb Hct MCV MCH MCHC RDW Plt Count MPV Neut # (Auto) Lymph # (Auto) [place] # (Auto) Eos # (Auto) Baso # (Auto) Absolute Nucleated RBC Nucleated RBC % Sodium Potassium Chloride Carbon Dioxide Anion Gap BUN Creatinine Estimated GFR (MDRD) Glucose Calcium Total Bilirubin AST ALT Alkaline Phosphatase Troponin I High Sens 34.6 H* Total Protein Albumin Globulin Albumin/Globulin Ratio Lipase - Rads (name of study) chest xray Radiology: Prelim report reviewed, See rad report PD MEDICAL DECISION MAKING - ED course Complexity details: reviewed old records, reviewed results, re-evaluated patient, considered differential, d/w patient, d/w family ED course: presents in ANDREW. She is on eliquis (for atrial fibrillation). She describes typically being able to feel when she is in atrial fibrillation but that tonight it felt significantly faster than her typical episodes, and the lightheadedness/dizziness and chest discomfort have not happened with previous episodes. She has heart rates in ED as high as 130s with normal/borderline high blood pressures. She is given metoprolol 5mg IV x 3 with improvement in rate without conversion to NSR. She reports resolution of symptoms as heart rate improved. No concerning findings on EKG (ANDREW). high sensitivity troponin is 27 with two-hour repeat 34.6, representing minimal delta. Her heart rate is 90s- 100s late in ED stay and symptoms resolved, given 50mg metoprolol PO. Results d/w patient, return precautions discussed, follow up with PMD recommended (next available appointment). Departure - Departure Disposition: 01 Home, Self Care Clinical Impression: Chest pain Qualifiers: Chest pain type: unspecified Qualified Code(s): R07.9 - Chest pain, unspecified Atrial fibrillation Qualifiers: Atrial fibrillation type: persistent (not longstanding) Qualified Code(s): I48.19 - Other persistent atrial fibrillation Condition: Good Instructions: ED Afib, ED Chest Pain Atypical Unkn Cause Follow-Up: ROLANDO TEMPLE DO [Primary Care Provider] - Comments: Follow up with your transplanter orchid. You are still in atrial fibrillation, but the rate is improved enough for discharge home. I recommend you take your regular medications as prescribed including the 9 AM dose of metoprolol. As we discussed, you should only take this if your blood pressure is over 110 systolic (top number). As long as your heart rate is under control (60-100 beats per minute, although up to 110 is acceptable if you are not having symptoms such as shortness of breath or chest discomfort and as long as it does not persist for more than a few hours), it is not dangerous to be in atrial fibrillation if you are on the appropriate blood thinner such as eliquis. Discharge Date/Time: 11/14/21 06:25
[2021-11-14 03:23] LABS: BASOPHILS % (AUTO) 0.3 %; EOSINOPHILS # (AUTO) 0.1 10^3/uL (0.0-0.7); EOSINOPHILS % (AUTO) 1.3 %; HCT - HEMATOCRIT 39.3 % (37.0-47.0); MEAN CORPUSCULAR HEMOGLOBIN 29.4 pg (27.0-31.0); MEAN CORPUSCULAR HGB CONC 33.1 g/dL (32.0-36.0); MEAN CORPUSCULAR VOLUME 88.9 fL (81.0-99.0); MONOCYTES % (AUTO) 9.8 %; NEUTROPHILS # (AUTO) 6.5 10^3/uL (1.5-6.6); NEUTROPHILS % (AUTO) 67.1 %; PLT - PLATELET COUNT 154 10^3/uL (130-450); RED BLOOD COUNT 4.42 10^6/uL (4.20-5.40); RED CELL DISTRIBUTION WIDTH 13.1 % (12.0-15.0); WHITE BLOOD COUNT 9.7 x10^3/uL (4.8-10.8)
[2021-11-14] MEDS ORDERED: METOPROLOL 5 MG/5 ML VIAL IVP STA ×3 (03:32→04:15)
[2021-11-14 03:36] LABS: ALBUMIN 4.1 g/dL (3.2-5.5); ALBUMIN/GLOBULIN RATIO 1.2 (1.0-2.2); BILIRUBIN,TOTAL 0.6 mg/dL (0.2-1.0); CALCIUM 9.8 mg/dL (8.5-10.3); CREATININE 0.7 mg/dL (0.4-1.0); POTASSIUM 3.9 mmol/L (3.5-5.0); TOTAL PROTEIN 7.5 g/dL (6.7-8.2)
[2021-11-14] MEDS ORDERED: METOPROLOL SUCCINATE 50 MG TABLET PO STA (05:11)
[2021-11-14 06:16] VITALS: BP 154/79
--- NOTE | 2021-11-14 08:27 | XRAY Report ---
PROCEDURE: Chest 1 View X-Ray INDICATIONS: Chest pain TECHNIQUE: One view of the chest was acquired. COMPARISON: Chest x-ray 07/25/2021. FINDINGS: Surgical changes and devices: The leadless cardiac monitoring device.. Lungs and pleura: No pleural effusions or pneumothorax. Lungs are clear. Mediastinum: Mediastinal contours appear normal. Heart size is normal. Bones and chest wall: No suspicious bony lesions. Overlying soft tissues appear unremarkable. IMPRESSION: No acute cardiopulmonary disease. No significant discrepancy with the preliminary interpretation. Reviewed by: Shin Segundo MD on 11/14/2021 8:26 AM PDT Approved by: Shin Segundo MD on 11/14/2021 8:26 AM PDT Station ID: [id number]
== END 2021-11-14 06:25 | disposition home or self-care (01) ==
LOC: SUPCPDRO 02:54 → ED 02:54
DX: R07.9 Chest pain, unspecified (principal); I48.91 Unspecified atrial fibrillation; Z79.01 Long term (current) use of anticoagulants; I10 Essential (primary) hypertension; E11.9 Type 2 diabetes mellitus without complications; Z79.84 Long term (current) use of oral hypoglycemic drugs
CPT/HCPCS: 36415; 71045; 80053; 83690; 84484; 85025; 93005; 96374; 99284; A9270

== ENCOUNTER 2021-11-20 15:25 | Emergency (ER) | payer MEDICARE, BC, OTHER ==
--- NOTE | 2021-11-20 15:47 | ED Physician Documentation ---
History of Present Illness - Stated complaint Stated Complaint: AFIB - Chief complaint Chief Complaint: Cardiac - History obtained from History obtained from: Patient - Additonal information Additional information: 76-year-old woman with history of TAVR a few months ago and paroxysmal atrial fibrillation maintained on Tikosyn and Eliquis. She is been having increasing trouble with A. fib lately. Was seen by my partner a week ago and rate controlled. 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 fib with palpitations discomfort shortness of breath and fatigue. She has been compliant with her medications including Eliquis. Review of Systems Ten Systems: 10 systems reviewed and negative Constitutional: reports: Fatigue Cardiac: reports: Palpitations Respiratory: reports: Dyspnea PD PAST MEDICAL HISTORY - Past Medical History Cardiovascular: Hypertension, Atrial fibrillation Respiratory: Sleep apnea, CPAP use Endocrine/Autoimmune: Type 2 diabetes : None Psych: Depression, Panic attacks Musculoskeletal: Osteoarthritis - Past Surgical History Past Surgical History: Yes General: Cholecystectomy, Colonoscopy Ortho: Carpal Tunnel surgery - Present Medications Home Medications: Ambulatory Orders Medication Instructions Recorded Confirmed Apixaban [Eliquis] 5 mg PO BID 07/25/21 07/25/21 Cholecalciferol [Vitamin D3] 5,000 unit PO DAILY 07/25/21 07/25/21 Dofetilide [Tikosyn] 500 mcg PO BID 07/25/21 07/25/21 Furosemide [Lasix] 20 mg PO DAILY 07/25/21 07/25/21 Magnesium Oxide 400 mg PO DAILY 07/25/21 07/25/21 Metoprolol Succinate [Toprol Xl] 25 mg PO BID 07/25/21 07/25/21 Multivitamin 1 tab PO DAILY 07/25/21 07/25/21 [place]-3S/Dha/Epa/Fish Oil [Fish 1 cap PO DAILY 07/25/21 07/25/21 Oil 1,200 mg Softgel] Potassium Chloride [Klor-Con] 20 meq PO DAILY 07/25/21 07/25/21 Telmisartan 20 mg PO DAILY 07/25/21 07/25/21 Ubidecarenone [Co Q-10] 300 mg PO DAILY 07/25/21 07/25/21 metFORMIN [Glucophage] 750 mg PO DAILY 07/25/21 07/25/21 Aspirin [Vazalore] 81 mg PO 11/14/21 - Allergies Allergies/Adverse Reactions: Allergies Allergy/AdvReac Type Severity Reaction Status Date / Time No Known Drug Allergies Allergy Verified 11/20/21 15:44 - Social History Does the pt smoke?: No Smoking Status: Never smoker Does the pt drink ETOH?: No Does the pt have substance abuse?: No - Immunizations Immunizations are current?: Yes - POLST Patient has POLST: No PD ED PE NORMAL - Vitals Vital signs reviewed: Yes - General General: Alert and oriented X 3, No acute distress - HEENT HEENT: PERRL, EOMI - Neck Neck: Supple, no meningeal sign, No bony TTP - Cardiac Cardiac: Other (Irregularly irregular with loud closing click) - Respiratory Respiratory: No respiratory distress, Clear bilaterally - Extremities Extremities: No edema, No calf tenderness / cord - Neuro Neuro: Alert and oriented X 3, Normal speech Results - Vitals Vitals: Vital Signs - 24 hr 11/20/21 11/20/21 11/20/21 15:37 15:57 16:25 Temperature 36.5 C Heart Rate 118 H 122 H 128 H Respiratory 18 16 33 H Rate Blood Pressure 145/76 H 154/73 H 136/85 H O2 Saturation 100 98 99 11/20/21 11/20/21 11/20/21 16:32 16:36 16:41 Temperature Heart Rate 43 L 50 L 54 L Respiratory 11 L 12 15 Rate Blood Pressure 137/72 H 132/67 H 137/81 H O2 Saturation 96 98 97 Oxygen O2 Source Room air - EKG (time done) 1536 Rate: Rate (enter#) (88) Rhythm: Atrial fibrillation [place]: Normal Intervals: Other (Incomplete left bundle branch block) QRS: LVH Ischemia: No: ST elevation c/w ischemia, ST depression 1634 Rate: Rate (enter#) (49) Rhythm: Sinus tachycardia, NSR [place]: Normal Intervals: Normal [place] QRS: LVH Ischemia: Normal ST segments - Labs Labs: Laboratory Tests 11/20/21 11/20/21 15:34 15:34 WBC 10.9 H RBC 4.76 Hgb 13.9 Hct 42.3 MCV 88.9 MCH 29.2 MCHC 32.9 RDW 13.3 Plt Count 191 MPV 10.2 Neut # (Auto) 7.8 H Lymph # (Auto) 1.9 [place] # (Auto) 1.0 Eos # (Auto) 0.1 Baso # (Auto) 0.0 Absolute Nucleated RBC 0.00 Nucleated RBC % 0.0 Sodium 140 Potassium 3.9 Chloride 102 Carbon Dioxide 26 Anion Gap 12.0 BUN 20 Creatinine 0.8 Estimated GFR (MDRD) 70 L Glucose 105 H Calcium 10.2 Magnesium 2.1 Procedures - Procedural sedation Sedation prep: Informed consent, Time out completed, Last meal (929), PE performed, ASA 2 - mild disease Sedation Medications: propofol (70mg IVP) Mallampati classification: I Patient status during sedation: Responds to tactile Sedation recovery: Recovered uneventfully Time in sedation (Minutes): 10 - Cardioversion 1 Time of attempt: 16:30 Indication: Tachyarrhythmia Risks, benefits, alternatives explained to: Pt Prep: IV, O2, nutrition educator, Pulse ox CS via: Pads, AP approach Sync: 50j Post cardioversion rhythm: NSR Performed by: ED MD MEDICAL DECISION MAKING - ED course ED course: 76-year-old woman with symptomatic atrial fibrillation here requesting cardioversion. She is anticoagulated. After discussion she verbally and tiffanie josé consented for the procedure and was cardioverted on the first try. Departure - Departure Clinical Impression: Atrial fibrillation Qualifiers: Atrial fibrillation type: paroxysmal Qualified Code(s): I48.0 - Paroxysmal atrial fibrillation Condition: Good Instructions: Atrial Fibrillation Dc Comments: You were seen today for symptomatic atrial fibrillation. Your heart rate was in the 1 teens. Blood work was unremarkable including renal function and electrolytes. Potassium was 3.9, magnesium 2.1. Reasonable to follow-up with the mini lab operator as you already planning to do. Take the copies of the EKGs from before and after the cardioversion today with you. You were cardioverted on the first try at 50 J.
[2021-11-20 16:04] LABS: BASOPHILS % (AUTO) 0.3 %; EOSINOPHILS # (AUTO) 0.1 10^3/uL (0.0-0.7); EOSINOPHILS % (AUTO) 0.7 %; HCT - HEMATOCRIT 42.3 % (37.0-47.0); HGB - HEMOGLOBIN 13.9 g/dL (12.0-16.0); LYMPHOCYTES # (AUTO) 1.9 10^3/uL (1.5-3.5); LYMPHOCYTES % (AUTO) 17.3 %; MEAN CORPUSCULAR HEMOGLOBIN 29.2 pg (27.0-31.0); MEAN CORPUSCULAR HGB CONC 32.9 g/dL (32.0-36.0); MEAN CORPUSCULAR VOLUME 88.9 fL (81.0-99.0); MEAN PLATELET VOLUME 10.2 fL (7.9-10.8); MONOCYTES % (AUTO) 9.3 %; NEUTROPHILS # (AUTO) 7.8 10^3/uL (1.5-6.6); NEUTROPHILS % (AUTO) 71.9 %; PLT - PLATELET COUNT 191 10^3/uL (130-450); RED BLOOD COUNT 4.76 10^6/uL (4.20-5.40); RED CELL DISTRIBUTION WIDTH 13.3 % (12.0-15.0); WHITE BLOOD COUNT 10.9 x10^3/uL (4.8-10.8)
[2021-11-20] MEDS ORDERED: PROPOFOL 200 MG/20 ML VIAL IVP STA (16:07)
[2021-11-20 16:12] LABS: CALCIUM 10.2 mg/dL (8.5-10.3); CREATININE 0.8 mg/dL (0.4-1.0); MAGNESIUM 2.1 mg/dL (1.7-2.8); POTASSIUM 3.9 mmol/L (3.5-5.0)
[2021-11-20 17:08] VITALS: BP 133/67
== END 2021-11-20 17:22 | disposition home or self-care (01) ==
LOC: ED 15:25
DX: I48.0 Paroxysmal atrial fibrillation (principal); I48.20 Chronic atrial fibrillation, unspecified; Z79.01 Long term (current) use of anticoagulants; I10 Essential (primary) hypertension; E11.9 Type 2 diabetes mellitus without complications; Z79.84 Long term (current) use of oral hypoglycemic drugs
CPT/HCPCS: 36415; 80048; 83735; 85025; 92960; 93005; 94770; 99152

== ENCOUNTER 2022-05-31 14:57 | Outpatient (CLI) | payer MEDICARE, BC, OTHER ==
[2022-05-31 15:35] VITALS: BP 110/72
--- NOTE | 2022-05-31 15:35 | SLEEP CARE CONSULTATION ---
Information from patient questionnaire entered by Karyn Dahl. I have reviewed and concur with the information entered by Karyn Dahl. This document represents the service I personally performed and the decisions made by me, Piedad Oconnor ARNP. History of Present Illness Service Date and Time: 05/31/2022 1457 Previous diagnosis: Severe, Obstructive Sleep Apnea-Hypopnea Syndrome AHI: 58.0 (in 2018)(58.6 in 2007) Reason for follow up: annual (LAST SEEN 04/2021) Accompanied by: Spouse Equipment type: CPAP (ARAIZA Dreamstation 2) Equipment obtained from: [employer] (getting supplies as needed) Mask style: Nasal pillows Backup mask available: Yes (old mask) Last cushion change: 1 week ago Prior sleep studies: Yes Year and Where: 2007 and 2017 - 71lbs Sleep Type of Sleep Study: Polysomnography HPI additional information: PAXTON GEE was diagnosed to have severe, AHI 58.0, obstructive sleep apnea- hypopnea syndrome and returned today with spouse for CPAP therapy annual follow- up. Sleep Study - Results Type of Sleep Study: Polysomnography Prior sleep studies: Yes Year and Where: 2007 and 2017 - 71lbs Sleep CPAP Compliance Data - Data Reviewed with Patient Average duration of nightly device use: 7 HRS 38 MIN 45SEC Compliance rate %: 98.9 (-05/28/22; 178/180 days) Current pressure setting (cmH2O): 8-9 Average residual AHI: 1.7 Central apnea: 0.1 Obstructive apnea: 0.3 Average large leak: 42 secs Subjective Missed days of use due to: reports: other (power outage) Patient concerns: reports: condensation in mask/hose (occasional, 3-4 times), dry mouth, nose, throat (occasional). denies: aerophagia, mask discomfort, air blowing in eyes, mask leak noise, nasal congestion, epistaxis Observed to snore while using device: No Current pressure setting perceived as: comfortable On therapy, patient: reports: sleeping better, awakening more refreshed, being more awake and alert during the day, more rested overall. denies: drowsiness while driving Initial [place] Sleepiness Scale score: 8 (in 2007) Current [place] Sleepiness Scale score: 7 (05/31/22) Allergies and Home Medications Drug allergies reviewed: Yes (NKDA) Home medication list reviewed: Yes (see updates in EMR) Review of Systems Review of systems same as previous: No (L knee replacement; Heart valve repair; Heart ablation) Physical Exam Vital signs obtained and entered by: KARYN Ocampo MA Blood Pressure: 110/72 (LEFT ARM) Cuff size: long Heart Rate: 53 O2 Saturation: 96 Height: 5 ft 6 in Weight: 224 lb 3.2 oz Body Mass Index: 36.1 BMI Classification: Obese Impression and Plan 1. Obstructive Sleep Apnea-Hypopnea Syndrome, severe, with good treatment compliance and good apnea control. On CPAP therapy, the patient has better sleep quality and is more rested overall. Patient has significant improvement of their sleep apnea and are satisfied with current CPAP therapy. Patient complaining of some dry nose. I advised her to try a nasal moisturizer. I checked her settings she has her humidifier at 5 and her heated hose at 5 as well. I reduced the heated hose to 4 to see if this will help reduce nasal dryness. Patient's apnea severity and rationale for treatment to reduce apnea, improve sleep quality and reduce cardiovascular and cerebrovascular events was reviewed. I also reviewed the benefit of consistent device use of CPAP for hypertension and arrhythmia. 2. Obesity, unspecified. Currently patients BMI is 36.1. Obesity increases the risk of apnea, CPAP pressure requirements and overall health risks especially cardiovascular and diabetes. Thus patient is advised to lose weight. * Continue auto CPAP pressure at 8-9 cmH2O * Update supplies * Notify me if snoring with mask or feeling that the pressure is too much or too little * Attempt to lose weight * Call this office if any problems using CPAP * Return for follow up in 1 year, or sooner if concerns arise Counseling Topics: Spare mask, Weight loss health impact Visit Type: In Office Other Participants: Spouse/Significant Other Time Spent with Patient (minutes): 22 Provider Statement: I spent 100% of the Face to Face Visit with the patient with greater than 50% spent counseling the patient and coordination of care.
== END 2022-05-31 14:58 | disposition home or self-care (01) ==
LOC: SC 14:57
PROVIDERS: ATTEND Nurse Practitioner Family
DX: G47.33 Obstructive sleep apnea (adult) (pediatric) (principal); E66.9 Obesity, unspecified; Z68.36 Body mass index [BMI] 36.0-36.9, adult
CPT/HCPCS: 99213; G0463; 99212

== ENCOUNTER 2022-08-17 16:48 | Emergency (ER) | payer MEDICARE, BC, OTHER ==
--- NOTE | 2022-08-17 17:04 | ED Physician Documentation ---
PD HPI HEAD INJURY - Stated complaint Stated Complaint: GLF/HEAD INJ - Chief complaint Chief Complaint: Trauma Hd/Nk - History obtained from History obtained from: Patient - Additional information Additional information: This is a james 77-year-old woman who is on Eliquis for A-fib. She slipped getting out of a chair today and hit her right supraorbital area on the counter. No other injuries. No loss of consciousness. She has a headache, but says she always has a headache. PD PAST MEDICAL HISTORY - Past Medical History Cardiovascular: Hypertension, Atrial fibrillation Respiratory: Sleep apnea, CPAP use Endocrine/Autoimmune: Type 2 diabetes : None Psych: Depression, Panic attacks Musculoskeletal: Osteoarthritis - Past Surgical History Past Surgical History: Yes General: Cholecystectomy, Colonoscopy Ortho: Carpal Tunnel surgery - Present Medications Home Medications: Ambulatory Orders Medication Instructions Recorded Confirmed Apixaban [Eliquis] 5 mg PO BID 07/25/21 05/31/22 Cholecalciferol [Vitamin D3] 5,000 unit PO DAILY 07/25/21 05/31/22 Dofetilide [Tikosyn] 500 mcg PO BID 07/25/21 05/31/22 Furosemide [Lasix] 20 mg PO DAILY 07/25/21 05/31/22 Magnesium Oxide 400 mg PO DAILY 07/25/21 05/31/22 Metoprolol Succinate [Toprol Xl] 25 mg PO BID 07/25/21 05/31/22 Multivitamin 1 tab PO DAILY 07/25/21 05/31/22 [place]-3S/Dha/Epa/Fish Oil [Fish 1 cap PO DAILY 07/25/21 05/31/22 Oil 1,200 mg Softgel] Potassium Chloride [Klor-Con] 20 meq PO DAILY 07/25/21 05/31/22 Telmisartan 20 mg PO DAILY 07/25/21 05/31/22 metFORMIN [Glucophage] See Rx Instructions .ROUTE .COMPLEX 07/25/21 05/31/22 Aspirin [Vazalore] 81 mg PO 11/14/21 Turmeric Root Extract [Turmeric] See Rx Instructions .ROUTE .COMPLEX 05/31/22 05/31/22 - Allergies Allergies/Adverse Reactions: Allergies Allergy/AdvReac Type Severity Reaction Status Date / Time No Known Drug Allergies Allergy Verified 11/20/21 15:44 - Social History Does the pt smoke?: No Smoking Status: Never smoker Does the pt drink ETOH?: No Does the pt have substance abuse?: No - Immunizations Immunizations are current?: Yes - POLST Patient has POLST: No PD ED PE NORMAL - Vitals Vital signs reviewed: Yes - General General: Alert and oriented X 3, No acute distress - HEENT HEENT: PERRL, EOMI, Other (Bruising and swelling in the right supraorbital area without underlying bony tenderness) - Neck Neck: Supple, no meningeal sign, No bony TTP - Cardiac Cardiac: Other (Irregularly irregular) - Neuro Neuro: Alert and oriented X 3, No motor deficit, No sensory deficit, Normal speech Eye Opening: Spontaneous Motor: Obeys Commands Verbal: Oriented GCS Score: 15 Results - Vitals Vitals: Vital Signs - 24 hr 08/17/22 16:51 Temperature 36.5 C Heart Rate 82 Respiratory 16 Rate Blood Pressure 132/93 H O2 Saturation 98 Oxygen O2 Source Room air - Rads (name of study) CT of the head was negative with the exception of air-fluid level in the right maxillary sinus Relevant Findings:: Final report received, EMP independent interpretation of test PD Medical Decision Making - ED course ED course: 77-year-old woman on a DOAC presents after facial contusion. The contusion is above the eye. She was reexamined after CT and has no tenderness over the sinuses. As an ancillary complaint she discussed with me that she has ongoing tinnitus and hearing loss, I recommended her seeing an scouring train operator chief. Departure - Departure Disposition: 01 Home, Self Care Clinical Impression: Ground-level fall Facial contusion Qualifiers: Encounter type: initial encounter Qualified Code(s): S00.83XA - Contusion of other part of head, initial encounter Condition: Stable Record reviewed to determine appropriate education?: Yes Instructions: ED Head Injury Closed Comments: Your brain looks fine. Given your ongoing tinnitus associated with hearing loss it may be useful to for you to see an scouring train operator chief such as: [facility] [address] [place] [address]
--- NOTE | 2022-08-17 18:26 | CT Report ---
PROCEDURE: CT brain without contrast INDICATIONS: Trauma, pain TECHNIQUE: Noncontrast 4.5 mm thick angled axial sections acquired from the foramen magnum to the vertex. For r adiation dose reduction, the following was used: automated exposure control, adjustment of mA and/or kV according to patient size. COMPARISON: None. FINDINGS: Image quality: Excellent. CSF spaces: Basal cisterns are patent. No extra-axial fluid collections. Ventricles are normal in size and shape. Brain: No midline shift. No intracranial masses or hemorrhage. Trevino-white matter interface is norm al. Moderate atrophy and white matter chronic ischemic change noted. Single sulcal calcification noted in the left sylvian cistern reflects prior granulomatous disease. Atherosclerotic vascular calcificatio n noted in the bilateral cavernous ICA Skull and face: Calvarium and visualized facial bones are intact, without suspicious lesions. ] Rig ht periorbital soft tissue swelling Sinuses: Air-fluid level right maxillary sinus IMPRESSION: Right periorbital soft tissue swelling without evidence of ocular injury. There is an air-fluid level in the right maxillary sinus which may be reactive or inflammatory. Consider follow-up maxillofacial CT if there is clinical concern for sinus fracture. Atrophy and white matter chronic ischemic change without intracranial hemorrhage or mass effect Reviewed by: Gokul Malhotra MD on 08/17/2022 5:25 PM AKLAN Approved by: Gokul Malhotra MD on 08/17/2022 5:25 PM AKDT Station ID: [id number]
[2022-08-17 18:41] VITALS: BP 115/73
== END 2022-08-17 18:42 | disposition home or self-care (01) ==
LOC: ED 16:48
DX: S00.83XA Contusion of other part of head, initial encounter (principal); W01.198A Fall on same level from slipping, tripping and stumbling with subsequent striking against other object, initial encounter; I10 Essential (primary) hypertension; E11.9 Type 2 diabetes mellitus without complications; Z79.84 Long term (current) use of oral hypoglycemic drugs; I48.91 Unspecified atrial fibrillation; Z79.01 Long term (current) use of anticoagulants
CPT/HCPCS: 99283; 99284

== ENCOUNTER 2022-08-20 14:45 | Emergency (ER) | payer MEDICARE, BC, OTHER ==
--- NOTE | 2022-08-20 15:28 | ED Physician Documentation ---
History of Present Illness - Stated complaint Stated Complaint: HEAD INJURY - Chief complaint Chief Complaint: Cardiac - History obtained from History obtained from: Patient, Family - History of Present Illness Timing: How many days ago (3) Pain level max: 4 Pain level now: 3 - Additonal information Additional information: Patient is a 77-year-old female presents to the emergency department after a fall a few days ago, she is on Eliquis. She states that she has had continued bruising around the right eye and the bruising spread to the left eye today so came back in for evaluation. No headache. No vomiting. No seizure activity. Nothing makes it better or worse. Review of Systems Constitutional: denies: Fever, Chills GI: denies: Vomiting, Diarrhea Skin: denies: Rash Musculoskeletal: denies: Neck pain, Back pain Neurologic: denies: Headache PD PAST MEDICAL HISTORY - Past Medical History Cardiovascular: Hypertension, Atrial fibrillation Respiratory: Sleep apnea, CPAP use Endocrine/Autoimmune: Type 2 diabetes : None Psych: Depression, Panic attacks Musculoskeletal: Osteoarthritis - Past Surgical History Past Surgical History: Yes General: Cholecystectomy, Colonoscopy Ortho: Carpal Tunnel surgery - Present Medications Home Medications: Ambulatory Orders Medication Instructions Recorded Confirmed Apixaban [Eliquis] 5 mg PO BID 07/25/21 05/31/22 Cholecalciferol [Vitamin D3] 5,000 unit PO DAILY 07/25/21 05/31/22 Dofetilide [Tikosyn] 500 mcg PO BID 07/25/21 05/31/22 Furosemide [Lasix] 20 mg PO DAILY 07/25/21 05/31/22 Magnesium Oxide 400 mg PO DAILY 07/25/21 05/31/22 Metoprolol Succinate [Toprol Xl] 25 mg PO BID 07/25/21 05/31/22 Multivitamin 1 tab PO DAILY 07/25/21 05/31/22 [place]-3S/Dha/Epa/Fish Oil [Fish 1 cap PO DAILY 07/25/21 05/31/22 Oil 1,200 mg Softgel] Potassium Chloride [Klor-Con] 20 meq PO DAILY 07/25/21 05/31/22 Telmisartan 20 mg PO DAILY 07/25/21 05/31/22 metFORMIN [Glucophage] See Rx Instructions .ROUTE .COMPLEX 07/25/21 05/31/22 Aspirin [Vazalore] 81 mg PO 11/14/21 Turmeric Root Extract [Turmeric] See Rx Instructions .ROUTE .COMPLEX 05/31/22 05/31/22 - Allergies Allergies/Adverse Reactions: Allergies Allergy/AdvReac Type Severity Reaction Status Date / Time No Known Drug Allergies Allergy Verified 08/20/22 15:02 - Social History Does the pt smoke?: No Smoking Status: Never smoker Does the pt drink ETOH?: No Does the pt have substance abuse?: No - Immunizations Immunizations are current?: Yes - POLST Patient has POLST: No PD ED PE NORMAL - Vitals Vital signs reviewed: Yes - General General: Alert and oriented X 3, No acute distress - HEENT HEENT: PERRL, EOMI, Moist mucous membranes, Other (Periorbital ecchymosis to the right and left orbits. She does have a small subconjunctival hemorrhage in the right eye. There is hematoma to the right upper forehead as well.) - Neck Neck: Supple, no meningeal sign - Cardiac Cardiac: RRR, Strong equal pulses - Respiratory Respiratory: No respiratory distress, Clear bilaterally - Abdomen Abdomen: Soft, Non tender, Non distended - Derm Derm: Warm and dry - Extremities Extremities: No edema, No calf tenderness / cord - Neuro Neuro: Alert and oriented X 3 - Psych Psych: Normal mood Results - Vitals Vitals: Vital Signs - 24 hr 08/20/22 08/20/22 14:54 15:49 Temperature 36.2 C L Heart Rate 72 98 Respiratory 16 18 Rate Blood Pressure 144/103 H 125/72 O2 Saturation 100 99 Oxygen O2 Source Room air - Rads (name of study) CT head Relevant Findings:: Final report received, See rad report maxillofacial CT Relevant Findings:: Final report received, See rad report PD Medical Decision Making - ED course Complexity details: re-evaluated patient, considered differential, d/w patient, d/w family ED course: No acute findings on head CT or maxillofacial CT that would require intervention. No fractures. No intracranial hemorrhage. Patient has continued bruising. This should continue to improve. We will have her follow-up with her doctor for further care. Patient counseled regarding signs and symptoms for which I believe and urgent re-evaluation would be necessary. Patient with good understanding of and agreement to plan and is comfortable going home at this time This document was made in part using voice recognition software. While efforts are made to proofread this document, sound alike and grammatical errors may occur. Departure - Departure Disposition: 01 Home, Self Care Clinical Impression: Facial contusion Qualifiers: Encounter type: initial encounter Qualified Code(s): S00.83XA - Contusion of other part of head, initial encounter Condition: Good Instructions: ED Head Injury Closed Follow-Up: ROLANDO TEMPLE DO [Primary Care Provider] - Comments: There are no fracture seen on your CT scan of your head or maxillofacial CT scan. The bruising should improve over the next few days. Please follow-up with your doctor for further care. Return if you worsen. Discharge Date/Time: 08/20/22 16:27
--- NOTE | 2022-08-20 15:50 | CT Report ---
PROCEDURE: HEAD WO INDICATIONS: fall head injury x 3 days TECHNIQUE: Noncontrast 4.5 mm thick angled axial sections acquired from the foramen magnum to the vertex. For r adiation dose reduction, the following was used: automated exposure control, adjustment of mA and/or kV according to patient size. COMPARISON: 08/17/2022 Correlation is made with the accompanying maxillofacial CT. FINDINGS: Image quality: Excellent. CSF spaces: Basal cisterns are patent. No extra-axial fluid collections. Ventricles are normal in size and shape. Brain: No midline shift. No intracranial masses or hemorrhage. Trevino-white matter interface is norm al. Age-appropriate brain parenchymal volume loss and chronic small vessel ischemic change can be se en. Symmetric calcification of the basal ganglia can be seen, which is considered to be within kee l limits for age. Skull and face: Right periorbital soft tissue swelling is seen, as before. No associated regional fra cture is seen. Sinuses: An air-fluid level is again seen within the right maxillary sinus, which measures 40 Hounsfi eld units. The paranasal sinuses otherwise appear clear. No significant abnormal fluid can be seen wi thin the mastoid air cells. IMPRESSION: Right periorbital soft tissue swelling is again seen. No associated fracture is seen. Layering blood can again be seen within the right maxillary sinus. No associated fracture is seen. No intracranial hemorrhage is seen. No significant intracranial abnormality is seen. Reviewed by: Ryland Urena MD on 08/20/2022 2:49 PM AKHIL Approved by: Ryland Urena MD on 08/20/2022 2:49 PM MALAN Station ID: [id number]
[2022-08-20 15:51] VITALS: BP 125/72
--- NOTE | 2022-08-20 15:52 | CT Report ---
PROCEDURE: MAXILLOFACIAL WO INDICATIONS: fall, facial swelling,bruising x 3 days TECHNIQUE: Noncontrast 1.5 mm thick axial images acquired from the mandible through the frontal sinuses, with co bret and sagittal reformatting. For radiation dose reduction, the following was used: automated ex posure control, adjustment of mA and/or kV according to patient size. COMPARISON: Relation is made with the accompanying head CT as well as the prior head CT dated 023. FINDINGS: Image quality: Excellent. Bones and teeth: Orbital rehman are intact. Sinus rehman show no fracture or deformity. Nasal bones and septum are intact. Visualized portions of the mandible demonstrate no fractures or subluxation. Zygomatic arches are intact. Pterygoid plates are intact. Visualized portions of the skull base an d auditory canals are intact. Sinuses: There is layering high density material seen within the right maxillary sinus, which measure s 40-50 Hounsfield units. Minimal frothy material can be seen within the left sphenoid sinus. The par anasal sinuses otherwise appear clear. No significant abnormal fluid can be seen within the mastoid a ir cells. Soft tissues: Right periorbital soft tissue swelling is again seen. Milder generalized soft tissue sw elling is seen of the right cheek. Vascular: Visualized vascular structures appear normal in the absence of contrast. Bony vascular fo ramina and canals are intact. IMPRESSION: Right prevertebral soft tissue swelling is seen. No associated fracture is seen. Milder generalized soft tissue swelling is noted of the right cheek. Layering blood can be seen within the right maxillary sinus. No associated maxillary sinus wall fract ure is seen. Reviewed by: Ryland Urena MD on 08/20/2022 2:51 PM AKHIL Approved by: Ryland Urena MD on 08/20/2022 2:51 PM AKHIL Station ID: [id number]
== END 2022-08-20 16:27 | disposition home or self-care (01) ==
LOC: ED 14:45
DX: S00.83XA Contusion of other part of head, initial encounter (principal); W19.XXXA Unspecified fall, initial encounter; I48.91 Unspecified atrial fibrillation; I10 Essential (primary) hypertension; E11.9 Type 2 diabetes mellitus without complications; Z79.01 Long term (current) use of anticoagulants; Z79.899 Other long term (current) drug therapy; Z79.84 Long term (current) use of oral hypoglycemic drugs
CPT/HCPCS: 99283; 99284

== ENCOUNTER 2022-12-31 05:22 | Outpatient (CLI) | payer MEDICARE, BC, OTHER | END 2022-12-31 05:23 | disposition short-term general hospital (02) | LOC: EMS 05:22 | DX: R41.82 Altered mental status, unspecified (principal); R09.89 Other specified symptoms and signs involving the circulatory and respiratory systems; I48.91 Unspecified atrial fibrillation; I49.3 Ventricular premature depolarization; R11.2 Nausea with vomiting, unspecified; R42 Dizziness and giddiness; R07.9 Chest pain, unspecified; R06.02 Shortness of breath; R53.1 Weakness | CPT/HCPCS: A0425; A0427 ==

== ENCOUNTER 2023-01-26 18:31 | Outpatient (CLI) | payer MEDICARE, BC, OTHER ==
--- NOTE | 2023-01-26 21:18 | XRAY Report ---
PROCEDURE: Ankle 3 View LT INDICATIONS: SPRAIN OF OTHER LIGAMENT OF LEFT ANKLE TECHNIQUE: 3 views of the ankle were acquired. COMPARISON: None. FINDINGS: Bones: No fractures or dislocations. Ankle mortise is normally aligned. Mild anterior tibiotalar kayli int space loss and spur formation. Prominent plantar calcaneal spur. No suspicious bony lesions. Soft tissues: No tibiotalar joint effusion. Achilles tendon appears normal. Moderate periarticular soft tissue swelling. IMPRESSION: Periarticular soft tissue swelling without underlying acute fracture. Reviewed by: Denae Haywood MD on 01/26/2023 9:17 PM PDT Approved by: Denae Haywood MD on 01/26/2023 9:17 PM PDT Station ID: [id number]
== END 2023-01-26 18:32 | disposition home or self-care (01) ==
LOC: DI 18:31
PROVIDERS: ATTEND Family Medicine
DX: S93.492A Sprain of other ligament of left ankle, initial encounter (principal)

== ENCOUNTER 2023-03-19 13:35 | Emergency (ER) | payer MEDICARE, BC, OTHER ==
[2023-03-19 14:40] LABS: BASOPHILS % (AUTO) 0.2 %; EOSINOPHILS # (AUTO) 0.2 10^3/uL (0.0-0.7); EOSINOPHILS % (AUTO) 1.9 %; HCT - HEMATOCRIT 39.7 % (37.0-47.0); HGB - HEMOGLOBIN 12.7 g/dL (12.0-16.0); LYMPHOCYTES # (AUTO) 1.6 10^3/uL (1.5-3.5); LYMPHOCYTES % (AUTO) 18.1 %; MEAN CORPUSCULAR HEMOGLOBIN 29.7 pg (27.0-31.0); MEAN CORPUSCULAR VOLUME 92.8 fL (81.0-99.0); MEAN PLATELET VOLUME 9.9 fL (7.9-10.8); MONOCYTES # (AUTO) 0.9 10^3/uL (0.0-1.0); MONOCYTES % (AUTO) 9.9 %; NEUTROPHILS # (AUTO) 5.9 10^3/uL (1.5-6.6); NEUTROPHILS % (AUTO) 69.3 %; PLT - PLATELET COUNT 174 10^3/uL (130-450); RED BLOOD COUNT 4.28 10^6/uL (4.20-5.40); RED CELL DISTRIBUTION WIDTH 13.6 % (12.0-15.0); WHITE BLOOD COUNT 8.6 x10^3/uL (4.8-10.8)
[2023-03-19 14:53] LABS: ALBUMIN 4.3 g/dL (3.2-5.5); ALBUMIN/GLOBULIN RATIO 1.6 (1.0-2.2); BILIRUBIN,TOTAL 0.5 mg/dL (0.2-1.0); CALCIUM 10.4 mg/dL (8.5-10.3); CREATININE 0.7 mg/dL (0.6-1.3)
[2023-03-19 15:08] LABS: TROPONIN I HIGH SENSITIVITY 125.3 ng/L (2.3-14.8)
--- NOTE | 2023-03-19 15:09 | XRAY Report ---
PROCEDURE: Chest 1 View X-Ray INDICATIONS: Chest pain TECHNIQUE: One view of the chest was acquired. COMPARISON: None. FINDINGS: Surgical changes and devices: Left chest wall pacer with electrodes in expected positions. Surgical clips in the right upper quadrant. Lungs and pleura: No pleural effusions or pneumothorax. Lungs are clear. Mediastinum: Mediastinal contours appear normal. Heart size is normal. Bones and chest wall: No suspicious bony lesions. Overlying soft tissues appear unremarkable. IMPRESSION: No acute cardiopulmonary process. Reviewed by: Bita Husain MD on 03/19/2023 3:08 PM [facility] Approved by: Bita Husain MD on 03/19/2023 3:08 PM PST Station ID: [id number]
--- NOTE | 2023-03-19 15:25 | ED Physician Documentation ---
PD HPI CHEST PAIN - Stated complaint Stated Complaint: CHEST PX - Chief complaint Chief Complaint: Cardiac - History obtained from History obtained from: Patient - Additional information Additional information: 77-year-old woman with history of TAVR about a year and a half ago and history of A-fib on Eliquis and Tikosyn. She says she did have an angiography prior to her TAVR again about a year and a half ago that was negative per her. She had on and off mild chest pains which was more severe starting about 4 AM this morning and lasting for about 5 hours. She still has very mild chest pain. It is substernal chest pressure radiating to the anterior part of both shoulders. She states she is not more short of breath than normal. No sweats or nausea. She has chronic dizziness. PD PAST MEDICAL HISTORY - Past Medical History Past Medical History: Yes Cardiovascular: Hypertension, Atrial fibrillation Respiratory: Sleep apnea, CPAP use Endocrine/Autoimmune: Type 2 diabetes : None Psych: Depression, Panic attacks Musculoskeletal: Osteoarthritis - Past Surgical History Past Surgical History: Yes General: Cholecystectomy, Colonoscopy Ortho: Carpal Tunnel surgery Cardiovascular: Pacemaker - Present Medications Home Medications: Ambulatory Orders Medication Instructions Recorded Confirmed Apixaban [Eliquis] 5 mg PO BID 07/25/21 03/19/23 Cholecalciferol [Vitamin D3] 5,000 unit PO DAILY 07/25/21 05/31/22 Dofetilide [Tikosyn] 500 mcg PO BID 07/25/21 03/19/23 Furosemide [Lasix] 20 mg PO DAILY 07/25/21 05/31/22 Magnesium Oxide 400 mg PO DAILY 07/25/21 05/31/22 Metoprolol Succinate [Toprol Xl] 25 mg PO BID 07/25/21 03/19/23 Multivitamin 1 tab PO DAILY 07/25/21 05/31/22 [place]-3S/Dha/Epa/Fish Oil [Fish 1 cap PO DAILY 07/25/21 05/31/22 Oil 1,200 mg Softgel] Potassium Chloride [Klor-Con] 20 meq PO DAILY 07/25/21 05/31/22 Telmisartan 20 mg PO DAILY 07/25/21 03/19/23 metFORMIN [Glucophage] See Rx Instructions .ROUTE .COMPLEX 07/25/21 03/19/23 Aspirin [Vazalore] 81 mg PO DAILY 11/14/21 03/19/23 Turmeric Root Extract [Turmeric] See Rx Instructions .ROUTE .COMPLEX 05/31/22 05/31/22 - Allergies Allergies/Adverse Reactions: Allergies Allergy/AdvReac Type Severity Reaction Status Date / Time No Known Drug Allergies Allergy Verified 03/19/23 14:13 - Social History Does the pt smoke?: No Smoking Status: Never smoker Does the pt drink ETOH?: No Does the pt have substance abuse?: No - Immunizations Immunizations are current?: Yes - POLST Patient has POLST: No PD ED PE NORMAL - Vitals Vital signs reviewed: Yes - General General: Alert and oriented X 3, No acute distress - Neck Neck: Supple, no meningeal sign, No bony TTP - Cardiac Cardiac: RRR, Other (3 out of 6 decrescendo holosystolic murmur heard best at the upper sternal borders) - Respiratory Respiratory: Clear bilaterally - Extremities Extremities: No edema, No calf tenderness / cord - Neuro Neuro: Alert and oriented X 3, Normal speech Results - Vitals Vitals: Vital Signs - 24 hr 03/19/23 03/19/23 03/19/23 14:09 15:27 17:00 Temperature 36.5 C Heart Rate 68 64 62 Respiratory 14 18 15 Rate Blood Pressure 173/75 H 165/68 H O2 Saturation 96 100 100 Oxygen O2 Source Room air - EKG (time done) 1405 EKG releavant findings:: EKG personally interpreted by author of this note. Relevant findings are: Rate: Rate (enter#) (60) Rhythm: Other (Atrial paced) [place]: Normal Intervals: Normal [place] QRS: Normal Ischemia: Normal ST segments Computer interpretation: Agree with computer - Labs Labs: Laboratory Tests 03/19/23 03/19/23 03/19/23 14:25 14:25 16:13 WBC 8.6 RBC 4.28 Hgb 12.7 Hct 39.7 MCV 92.8 MCH 29.7 MCHC 32.0 RDW 13.6 Plt Count 174 MPV 9.9 Neut # (Auto) 5.9 Lymph # (Auto) 1.6 Christian # (Auto) 0.9 Eos # (Auto) 0.2 Baso # (Auto) 0.0 Absolute Nucleated RBC 0.00 Nucleated RBC % 0.0 Sodium 140 Potassium 4.0 Chloride 104 Carbon Dioxide 30 Anion Gap 6.0 BUN 15 Creatinine 0.7 Estimated GFR (MDRD) 81 L Glucose 93 Calcium 10.4 H Total Bilirubin 0.5 AST 14 ALT 11 Alkaline Phosphatase 55 Troponin I High Sens 125.3 H* 214.2 H* Total Protein 7.0 Albumin 4.3 Globulin 2.7 Albumin/Globulin Ratio 1.6 Lipase 14 PD Medical Decision Making - ED course ED course: 77-year-old woman with no history of coronary disease with per her a negative angiogram a year and a half ago and work-up for TAVR now presents with episodic chest pain mild at this juncture but more severe this morning with elevated cardiac markers. Her troponin today is 125 with the high end of normal being about 15. She has had modest elevations of her troponins in the past, but only into the 20s and 30s and associated with rapid A-fib. She is therapeutically anticoagulated on Eliquis. We will place a call to her ballast cleaning operator associated with [facility] at 3:25 PM for consultation. After some delays I was able to get a hold of Dr. Munoz, ballast cleaning operator at [facility] who says she should come up for further evaluation and treatment and n.p.o. after midnight for presumed repeat cath. Recommends heparin bolus but no drip. As a courtesy since the patient was planned to having cataract surgery tomorrow I talked with Dr. De Anda on-call for her plastic mould maker to let them know that she would have to cancel. Accepted by Dr. Ksenia Frazier, hospitalist at 6:01 PM to [facility] and cobras are completed and she is stable for transport. - Critical Care Time(min): 35 Time Includes: Direct patient care, Review records, Reassess patient, Document care, Coordinate care, Medical consult, Family consult for tx dec Data interpretation: Labs, Pulse ox Procedures included in critical care time: Peripheral IV Procedures excluded from critical care time: EKG Departure - Departure Disposition: 02 Transfer Acute Care Hosp Clinical Impression: NSTEMI (non-ST elevated myocardial infarction) Condition: Serious Forms: PCP List
[2023-03-19 15:37] VITALS: O2SAT 100
[2023-03-19] MEDS ORDERED: NITROGLYCERIN 2% PASTE TOP STA (16:24)
[2023-03-19] MEDS ORDERED: ASPIRIN CHEW 81 MG TABLET PO STA (17:16)
[2023-03-19 17:18] VITALS: BP 165/68
[2023-03-19] MEDS ORDERED: HEPARIN 25000UNITS/500ML (D5W) 25,000 UNIT/500 ML BAG IV SCH (18:00)
== END 2023-03-19 18:44 | disposition short-term general hospital (02) ==
LOC: SUPCPDRO 13:35 → ED 13:35
DX: I21.4 Non-ST elevation (NSTEMI) myocardial infarction (principal); I10 Essential (primary) hypertension
CPT/HCPCS: 36415; 71045; 80053; 83690; 84484; 85025; 93005; 96374; 99285; 99291; A9270

== ENCOUNTER 2023-03-19 18:47 | Outpatient (CLI) | payer MEDICARE, BC, OTHER | END 2023-03-19 18:48 | disposition short-term general hospital (02) | LOC: EMS 18:47 | PROVIDERS: ATTEND Emergency Medicine | DX: I21.4 Non-ST elevation (NSTEMI) myocardial infarction (principal) | CPT/HCPCS: A0425; A0426 ==

== ENCOUNTER 2023-06-01 09:44 | Outpatient (CLI) | payer MEDICARE, BC, OTHER ==
--- NOTE | 2023-06-01 10:35 | Sleep Patient Instructions ---
Sleep Center Visit Summary - Patient Visit Information Reason for Visit: Annual visit - Patient Instructions Additional Instructions: You will continue with CPAP therapy with pressure set at 8-9 cmH2O. A supply prescription will be updated with your DME. I have added a mask fitting for the F&P Brevida nasal pillows mask. We encourage you to continue to try to lose weight. Please follow up with the sleep care office in 1 year. - Clinic Information Contact: [facility] [address] [place] [address] [email or web address] T: [phone]
--- NOTE | 2023-06-01 10:53 | SLEEP CARE CONSULTATION ---
Information from patient questionnaire entered by Karyn Dahl. I have reviewed and concur with the information entered by Karyn Dahl. This document represents the service I personally performed and the decisions made by me, Piedad Oconnor ARNP. History of Present Illness Service Date and Time: 06/01/2023 0944 Previous diagnosis: Severe, Obstructive Sleep Apnea-Hypopnea Syndrome AHI: 58.0 (in 2018)(58.6 in 2008) Reason for follow up: annual (LAST SEEN 05/2022) Accompanied by: Spouse (Shlomo) Equipment type: CPAP (ARAIZA Dreamstation 2; s/u 03/12/2018) Equipment obtained from: [employer] (getting supplies) Mask style: Nasal pillows Backup mask available: Yes Last cushion change: just over a week; on the and [facility]: Yes [facility] Type of Sleep [facility]: Pol[facility]omn[facility] HPI additional information: PAXTON GEE was diagnosed to have severe, AHI 58, obstructive sleep apnea- hypopnea syndrome and returned today with spouse for CPAP therapy annual follow- up. Sleep Study - Results Type of Sleep Study: Polysomnography Prior sleep studies: Yes Year and Where: 2007 and 2017 - [facility] CPAP Compliance Data - Data Reviewed with Patient Average duration of nightly device use: 7 HRS 18 MIN 47 SEC Compliance rate %: 98.9 (05/29/22-05/28/23; 363/365 days used) Current pressure setting (cmH2O): 8-9 Average residual AHI: 1.3 Central apnea: 0.1 Obstructive apnea: 0.2 Hypopnea: 1 Average large leak: 1mins 6 secs Subjective Missed days of use due to: reports: other (power outages) Patient concerns: reports: condensation in mask/hose (intermittent), dry mouth, nose, throat (dry nose). denies: aerophagia, mask discomfort, air blowing in eyes, mask leak noise, nasal congestion, epistaxis Observed to snore while using device: No Current pressure setting perceived as: comfortable On therapy, patient: reports: sleeping better, awakening more refreshed, being more awake and alert during the day, other (having more interruptions of sleep affecting feeling rested overall). denies: more rested overall, drowsiness w hile driving Initial Cocoa Sleepiness Scale score: 8 (in 2007) Current Cocoa Sleepiness Scale score: 8 Allergies and Home Medications Known drug allergies: No Drug allergies reviewed: Yes Home medication list reviewed: Yes (updated in EMR) Allergy and home medication list: Allergies No Known Drug Allergies Allergy (Verified 05/30/23 09:44) Review of Systems Review of systems same as previous: No (Pacemaker 01/19/23; heart valve 11/2021) Physical Exam Vital signs obtained and entered by: KARYN Ocampo MA Blood Pressure: 152/81 Cuff size: regular Heart Rate: 60 O2 Saturation: 97 Height: 5 ft 6 in Weight: 239 lb 3.2 oz Body Mass Index: 38.6 BMI Classification: Obese Impression and Plan 1. Obstructive Sleep Apnea-Hypopnea Syndrome, severe, with good treatment compliance and good apnea control. On CPAP therapy, the patient has better sleep quality and is more rested overall. Patient has significant improvement of their sleep apnea and is satisfied with current CPAP therapy. She also gets some dry nose in the morning. I again encouraged her to try a nasal moisturizer. She voiced understanding. She would like to try a different style of mask. After reviewing with her, she will try the [employer] Brevida nasal pillows mask and I will add a mask fitting to her supply prescription. Patient's apnea severity and rationale for treatment to reduce apnea, improve sleep quality and reduce cardiovascular and cerebrovascular events was reviewed. I also reviewed the benefit of consistent device use of CPAP for hypertension and arrhythmia. 2. Obesity, unspecified. Currently patients BMI is 38.6. Obesity increases the risk of apnea, CPAP pressure requirements and overall health risks especially cardiovascular and diabetes. Thus patient is advised to lose weight. * Continue auto CPAP pressure at 8-9 cmH2O * Mask refitting for F&P Brevida nasal pillows mask * Update supply prescription * Notify me if snoring with mask or feeling that the pressure is too much or too little * Attempt to lose weight * Call this office if any problems using CPAP * Return for follow up in 12 months, or sooner if concerns arise Counseling Topics: Spare mask, Weight loss health impact Prescriptions: Device supplies Follow up with Sleep Care in: 1 year Visit Type: In Office Time Spent with Patient (minutes): 23 Provider Statement: I spent 100% of the Face to Face Visit with the patient with greater than 50% spent counseling the patient and coordination of care.
[2023-06-01 11:11] VITALS: BP 152/81; O2SAT 97
== END 2023-06-01 09:45 | disposition home or self-care (01) ==
LOC: SC 09:44
PROVIDERS: ATTEND Nurse Practitioner Family
DX: G47.33 Obstructive sleep apnea (adult) (pediatric) (principal); E66.9 Obesity, unspecified; Z68.38 Body mass index [BMI] 38.0-38.9, adult
CPT/HCPCS: 99213; G0463; 99212